=== PATIENT | male | born 1985 | race African-American/Black ===

== ENCOUNTER 2021-02-10 03:37 | Emergency (ER) | payer OTHER | END 2021-02-10 04:05 | disposition left against medical advice (07) | LOC: M.ERS 03:37 | DX: R11.2 Nausea with vomiting, unspecified (principal); R19.7 Diarrhea, unspecified; R10.9 Unspecified abdominal pain; R53.1 Weakness; Z53.21 Procedure and treatment not carried out due to patient leaving prior to being seen by health care provider ==

== ENCOUNTER → 2021-11-01 | Emergency (ER) | payer OTHER ==
[~2021-11-01] VITALS: Ht 170.2 cm; Wt 61.2 kg
[2021-11-01 11:50] VITALS: BP 122/82
== END ==
LOC: M.ERS 11:07
DX: R42 Dizziness and giddiness (principal); Z20.822 Contact with and (suspected) exposure to COVID-19; Z88.5 Allergy status to narcotic agent